=== PATIENT | female | born 1980 | race Caucasian/White ===

== ENCOUNTER 2024-07-01 12:14 | Outpatient (CLI) | payer OTHER, SELFPAY ==
--- NOTE | ~2024-07-01 | US_ITS ---
EXAMINATION: US FNA w image guidance DATE: 07/01/2024 13:46 INDICATION: Nontoxic single thyroid nodule TECHNIQUE: A time-out was performed to verify the patient's name, date of , and procedure to be performed . The procedure and its benefits and risks were discussed with the patient. Risks specifically discus sed included bleeding and infection. The patient understood the risks and agreed to proceed. The neck was prepped and draped in the usual sterile manner. 3 mL 1% lidocaine was used for local anesthesia . 6 passes were made with a 25G needle into the lesion. Appropriate needle location was documented with continuous sonographic guidance. A sterile bandage was applied. There were no immediate compli cations. FINDINGS: Grayscale ultrasound images demonstrate biopsy needles advanced into a 1.8 cm solid heterogeneously h ypoechoic nodule with lobular margins and with both punctate and coarse shadowing calcifications (TI- RADS 5, highly suspicious , FNA if >=1.0 cm, annual followup is >0.5 cm). IMPRESSION: 1. Successful ultrasound-guided fine needle aspiration of a 1.8 cm TI RADS 5 left thyroid nodule. Reviewed, dictated and finalized at location A. IMPRESSION: 1. Successful ultrasound-guided fine needle aspiration of a 1.8 cm TI RADS 5 l eft thyroid nodule.
--- OUTSIDE RECORDS SUMMARY | 2024-07-01 13:56 | XMS_ITS | Clinical Summary ---
Author Organization [facility] Address [address] [place] [address] Care Team Providers Care Finance Admin Name Role Phone Sunny Iyer Primary Care Provider Unavailab le Source Comments [facility],non-owned Affiliates and Associated Physician Practices is amultiple site organization consisting of ambulatory clinics and hospital sitesin [place], [place], [place] and [place]. This disclosure is being madepursuant to the Care Everywhere program and may not contain all information available regarding this patient. Last updated 17.[facility] [employer] Allergies No known active allergies Social History Tobacco Use Types Packs/Day Years Used Date Smoking Tobacco: Every Day Cigarettes Smokeless Tobacco: Never Sex and Gender Information Value Date Recorded Sex Assigned at Not on file Gender Identity Not on file Sexual Orientation Not on file Last Filed Vital Signs Vital Sign Reading Time Taken Comments Blood Pressure - - Pulse - - Temperature - - Respiratory Rate - - Oxygen Saturation - - Inhaled Oxygen Concentration - - Weight 72.6 kg (160 lb) 08/08/2017 12:59 PM CDT Height 167.6 cm (5' 6 ) 08/08/2017 12:59 PM CDT Body Mass Index 25.82 08/08/2017 12:59 PM CDT Plan of Treatment Health Maintenance Due Date Last Done Comments COLOGUARD (AGES 45-75) - COL ON CA SCREENING 1978 COLON MONITORING 1978 COLONOSCOPY - COLON CA SCREENING 1978 CT COLONOGRAPHY - COLON CA SCREENING 1978 Colorectal Cancer Screening 1978 FIT - COLON CA SCREENING 1978 FLEX SIG - COLON CA SCREENING 1978 LIPID TESTING 1978 MAMMOGRAM 1978 PAP SMEAR 1978 HIV SCREENING 1993 HEPATITIS C SCREENING 02/24/1996 DTAP/TDAP/TD VACCINES (1 - Tdap) 1997 HEPATITIS B VACCINE (1 of 3 - 19+ 3-dose series) 1997 COVID-19 VACCINE (1 - 2023-2 5 season) 2023 DEPRESSION SCREENING 03/27/2024 INFLUENZA VACCINE (Season Ended) 2024 ZOSTER VACCINE (1 of 2) 02/29/2028 HIB VACCINE Aged Out No longer eligi ble based on patient's age to complete this topic HPV VACCINE Aged Out No longer eligi ble based on patient's age to complete this topic MENINGOCOCCAL (Group B) VACC INE SHARED DECISION-MAKING Aged Out No longer eligibl e based on patient's age to complete this topic MENINGOCOCCAL GROUPS A/C/Y/W VACCINE Aged Out No longer eligible b ased on patient's age to complete this topic PNEUMOCOCCAL VACCINE Aged Out No long er eligible based on patient's age to complete this topic Care Teams Finance Admin Relationship Specialty Start Date End Date Sunny Iyer Update Information PCP - General 05/06/19
--- OUTSIDE RECORDS SUMMARY | 2024-07-01 13:56 | XMS_ITS | CONTINUITY OF CARE DOCUMENT ---
Author Name [email or web address] Address Unknown Organization [facility] Address [address] [place] [address] Phone [phone] Care Team Providers Care Power Shovel Engineer Name Role Phone Chidi Zamudio MD Unavailable DONI REYES MD Unavailable DONI REYES MD Unavailable [phone] INSURANCE PROVIDERS Payer name Policy type / Coverage type [place] (2) Medicaid [id number]
--- OUTSIDE RECORDS SUMMARY | 2024-07-01 13:57 | XMS_ITS | Clinical Summary ---
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 Gender Identity Not on file Sexual Orientation Not on file Plan of Treatment Health Maintenance Due Date Last Done Comments Hepatitis C Virus (HCV) Screening 1978 TdaP Immunization 1978 Hepatitis B Immunization (1 of 3 - 19+ 3-dose series) 1997 Pap Smear 1999 Cervical Cancer Screening (CCS) 02/29/2008 HPV/Cotest 02/29/2008 Discussion re Starting/Frequ ency of Mammograms 2018 Colonoscopy 2023 Colorectal Cancer Screening 2023 Influenza Immunization (#1) 2023 SARS-COV-2 Immunization ( season) 2023 Respiratory Syncytial Virus (RSV) Immunization (Adult) (1 - 1-dose 75+ series) 2053 Meningococcal Immunization (ACWY) Aged Out No longer eligible based on patient's age to complete this topic Pneumococcal Immunization Combined Aged Out No longer eligible based on patient's age to complete this topic Rotavirus Immunization Aged Out No lo nger eligible based on patient's age to complete this topic Insurance MEDICAID [employer] Care Teams Solar Sales Assessor Relationship Specialty Start Date End Date Derek Denise MD [address] [place] [address] [address] [place] [address] PCP - General Internal Medicine 05/11/16
--- OUTSIDE RECORDS SUMMARY | 2024-07-01 13:57 | XMS_ITS | Data Portability ---
Author Organization Jocelynn RÍOS Address [address] [place] [address] Assessment No assessment recorded. Plan of Treatment Reminders Order Date Submit Date Provider Last Modified By Organization Details Last Modified Time Details Appointments None recorded. Lab CBC 2017 018 [facility], [address] [place] [address], [address], [place], [address], 8 15:22:49 TSH, ultra-sens itive, serum 2017 018 [facility], [address] [place] [address], [address], [place], [address], 8 15:22:48 CMP, serum or plasma 2017 018 [facility], [address] [place] [address], [address], [place], [address], 8 15:22:49 lipid panel, serum 2017 018 [facility], [facility], [address], [place], [address], 8 15:22:49 gamma-glut amyl transferas e (ggt), serum 2016 017 [facility], [address] [place] [address], [address], [place], [address], 7 03:07:15 TSH, ultra-sens itive, serum 2016 017 [facility], [address], [address], [place], [address], 7 03:07:16 lipid panel, serum 2016 017 [facility], [address], [address], [place], [address], 7 03:07:18 vitamin D, 25-hydroxy , total, serum 2016 017 [facility], [address], [address], [place], [address], 7 03:07:19 CMP, serum or plasma 2016 017 [facility], [address], [address], [place], [address], 7 03:07:22 vitamin B12 + folate, serum or blood 2016 017 [facility], [address], [address], [place], [address], 7 03:07:12 CBC w/ auto diff 2016 017 [facility], [address], [address], [place], [address], 7 03:07:13 TSH, ultra-sens itive, serum 2015 016 [email or web address], [address], [address], [place], [address], 6 15:10:02 CBC 2015 016 [email or web address] [facility], [address] [facility], [address], [place], [address], 6 15:10:03 CMP, serum or plasma 2015 016 [email or web address] [facility], [address] [facility], [address], [place], [address], 6 15:10:03 Referral orthopedic referral 2017 018 [email or web address] Cesario Rizzo MD, [address] [facility], [place], [address], 8 09:21:51 ENT referral - chronic hoarseness , globus sensation, vocal strain and voice fatigue 2015 016 [email or web address] Not available 6 14:26:32 Procedures None recorded. Surgeries None recorded. Imaging XR, thoracic spine 2017 018 [facility], [address] [place], [address], 8 16:13:25 XR, thoracolum bar spine 2016 017 [facility] ([facility]) Scheduling, [address] [place], [address], 7 09:23:22 Medication Orders tizanidine 4 mg tablet 2017 018 [facility], [address] [place] [address], [address], 8 15:22:40 tizanidine 4 mg tablet 2016 017 [facility], [address] [place], [address], 7 18:51:53 meloxicam 7.5 mg tablet 2016 017 [facility], [address] [place] [address], [address], 8 15:20:16 ibuprofen 800 mg tablet 2015 016 [facility], [address] [place] [address], [address], 7 14:32:56 hydroxyzin e HCl 50 mg tablet 2015 016 [facility], [address] [place] [address], [address], 7 14:14:17 Selsun [employer] 3 % shampoo 2015 016 [facility], [address] [place] [address], [address], 7 14:33:27 triamcinol one acetonide 0.5 % topical ointment 2015 016 [facility], [address] [place] [address], [address], 7 14:42:12 Patient TargetsNo targets recorded. Patient Instructions Encounter Date Encounter Id Patient Instructions Last Modified By Organization Details Last Modified Time 01/06/2016 [id number] deciding about using medicines to quit smoking [email or web address] Not available 01/06/2016 14:52:21 Learning About Benefits of Quitting Smoking [email or web address] Not available 01/06/2016 14:52:21 patient will schedule follow up visit with new PCP if symptoms do not improve. [email or web address] Not available 01/06/2016 14:36:17 04/26/2016 [id number] substance use disorder: care instructions [email or web address] Not available 04/26/2016 14:53:53 alcohol detoxification and withdrawal: care instructions [email or web address] Not available 04/26/2016 14:53:53 deciding about using medicines to quit smoking [email or web address] Not available 04/26/2016 14:53:52 Quitting Tobacco : Care Instructions [email or web address] Not available 04/26/2016 14:53:52 healthy upper back: exercises [email or web address] Not available 04/26/2016 14:53:52 back stretches: exercises [email or web address] Not available 04/26/2016 14:53:53 stretching: exercises [email or web address] Not available 04/26/2016 14:53:53 05/03/2017 [id number] When You Want to Lose Weight: Care Instructions [email or web address] Not available 05/03/2017 15:22:34 healthy upper back: exercises [email or web address] Not available 05/03/2017 15:22:34 back stretches: exercises [email or web address] Not available 05/03/2017 15:22:34 stretching: exercises [email or web address] Not available 05/03/2017 15:22:34 Reason for Referral ENT Referral for Chronic jacqueline rseness chronic hoarseness, globus sensation, vocal strain and voice fatigue Referring Physician: Reji Petty, Family Medicine, Encounter Date: 11/18/2015 Orthopedic Referral for Thor acic back pain As requested by the pt Referring Physician: Derek Denise, Internal Medicine, Encounter Date: 05/03/2017 Results Created Date Observation Date Name Description Value Unit Range Abnormal Flag Note LastModifiedBy Organization Detail LastModifiedTime 05/11/19 17 05/11/2016 XR, lumba r spine No observ ation record ed. akizer Not Available 2016 16:37:17 05/11/19 17 05/11/2016 XR, thora colum bar spine No observ ation record ed. akizer Not Available 2016 16:39:32 Result Notes None recorded. Problems Name Problem SNOMED Code Status Onset Date Resolution Date Notes Provider Name and Address Organization Details Recorded Time Acute upper respirat ory infectio n 98229066 Completed 05/03/2017 Derek Denise MD Attn: Accounting, [address] [place], [address], [place] [facility] 8 15:01:01 Upper respirat ory infectio n 80259929 Completed 201505/03/2017 seen at ER 6 Derek Denise MD Attn: Accounting, [address] [place], [address], [place] [facility] 8 15:00:50 Cigarett e smoker 07469300 Active Reji [place]ss [place], [place] [facility] 6 14:36:15 Excessiv e growth of facial hair 852160875 [place] [facility] 6 09:25:33 Vocal fatigue 3904002 Active Laurain [place] [facility] 6 15:41:16 Gastroes ophageal reflux disease 193692367 [place] Re[place] [facility] 6 14:48:08 Disorder of skin 90464617 Completed 05/03/2017 Derek Denise MD Attn: Accounting, [address] [facility], [place], [address], [place] [facility] 8 15:00:57 Chronic hoarsene ss 17258035787 05 Active [place] [facility] 6 15:41:16 Psoriasi form eczema 143383962 Active [place] [facility] 6 15:41:16 Dermatop hytosis 26538213 Active [place]anda[place] [facility] 6 15:41:16 Anxiety 97433431 Active [place] [facility] 6 15:41:16 Pityrias is versicol or 04372054 Active [place] [facility] 6 16:15:31 Multiple joint pain 44897232 Active [place] [facility] 6 14:36:15 Thoracic back pain 356394955 Active 2016 Derek Denise MD Attn: Accounting, [address] [place], [address], [place] [facility] 7 14:48:04 Tobacco dependen ce syndrome 69284399 Active 2016 Derek Denise MD Attn: Accounting, [address] [place], [address], [facility] 7 14:48:42 Alcohol dependen ce 56986153 Active 2016 Derek Denise MD Attn: Accounting, [address] [facility], [place], [address], [facility] 7 14:49:24 Problem Notes None recorded. Procedures Surgical History Date Name Laterality Status Provider Name and Address Organization Details Recorded Time 04/27/2012 Date of Last Pap Smear completed Cindy Ott MA [facility] 05/20/2015 11:26:05 03/27/2003 LEEP completed Cindy Ott MA [facility] 05/20/2015 11:19:31 Imaging Results Imaging Date Name Status LastModified by Organization Details LastModified Time 05/11/2016 XR, lumbar spine completed Informat ion not available 05/17/2016 16:37:17 05/11/2016 XR, thoracolumbar spine completed Information not available 05/17/2016 16:39:32 Procedure Notes None recorded. Medical Equipment None Reported. Allergies No known drug allergies Medications Name Sig Start Date Stop Date Status Note LastModified by Organization Details LastModified Time ketoconaz ole 2 % shampoo APPLY TO THE AFFECTED AREA(S), LATHER, LEAVE IN PLACE FOR 5 MINUTES, AND THEN RINSE OFF WITH WATER BY TOPICAL ROUTE ONCE DAILY FOR 3 DAYS 04/26 completed Not Available Not Available Not Available ibuprofen 800 mg tablet Take 1 tablet every 8 hours by oral route with meals. 04/26 completed Not Available Not Available Not Available tizanidin e 4 mg tablet Take 1 tablet every day by oral route as needed. active Not Available Not Available No t Available levonorge strel-eth inyl estradiol 0.1 mg-20 mcg tablet active Not Available Not Available Not Available prednison e 20 mg tablet Take 3 tablets every day by oral route as needed for 5 days. 07/22 completed Not Available Not Available Not Available Zithromax 250 mg tablet TAKE 2 TABLETS (500 MG) BY ORAL ROUTE ONCE DAILY FOR 1 DAY THEN 1 TABLET (250 MG) BY ORAL ROUTE ONCE DAILY FOR 4 DAYS 07/22 completed Not Available Not Available Not Available triamcino lone acetonide 0.5 % topical ointment APPLY A THIN LAYER TO AFFECTED AREA(S) TOPICALL Y TWICE DAILY USE SPARINGL Y active stopped 7 Not Available Not Available Not Available hydroxyzi ne HCl 50 mg tablet Take 1 tablet every 6-8 hours by oral route as needed. 04/26 completed Not Available Not Available Not Available triamcino lone acetonide 0.1 % topical cream active Not Available Not Available Not Available meloxicam 7.5 mg tablet Take 1 tablet twice a day by oral route with meals. active Not Available Not Available No t Available Tessalon Perles 100 mg capsule Take 1 capsule 3 times a day by oral route. 07/22 completed Not Available Not Available Not Available ferrous sulfate 325 mg (65 mg iron) tablet active Not Available Not Available Not Available ranitidin e 150 mg tablet Take 1 tablet twice a day by oral route as directed . 04/26 completed Not Available Not Available Not Available nicotine 21 mg/24 hr daily transderm al patch 04/26 completed Not Available Not Available Not Available Emla 2.5 %-2.5 % topical cream 04/26 completed Not Available Not Available Not Available hydralazi ne 50 mg tablet Take 1 tablet every 6-8 hours by oral route as needed. 04/26 completed Not Available Not Available Not Available Cheratuss in AC 10 mg-100 mg/5 mL oral liquid Take 10 mL every 4-6 hours by oral route after meals. 07/22 completed Not Available Not Available Not Available Vitamin D2 1,250 mcg (50,000 unit) capsule active Not Available Not Available Not Available fluticaso ne propionat e 50 mcg/actua tion nasal spray,randolph pension 04/26 completed Not Available Not Available Not Available nicotine 21mg/24hr -14mg/24h r-7mg/24h r daily transderm patches,s equentl Apply 1 patch every day by transder mal route in the morning. 07/22 completed Not Available Not Available Not Available ProAir HFA 90 mcg/actua tion aerosol inhaler Inhale 2 puffs every 4 hours by inhalati on route. 07/22 completed Not Available Not Available Not Available Claudio [employer] 3 % shampoo Apply 1 applicat ion every day by topical route. 04/26 completed Not Available Not Available Not Available Take Action 1.5 mg tablet 05/03 completed Not Available Not Available Not Available Vitals Date Recorded Body height Body mass index (BMI) Body weight Heart rate Respiratory rate Body temperature Systolic blood pressure Diastolic blood pressure Provider Name and Address Organization Details Last Updated DateTime 8 165.1 cm 27.2 kg/m2 50890.7 1 g 60 /min 16 /min 98 [degF] 126 mm[Hg] 90 mm[Hg] RAYMUNDO [place] [facility] 8 14:54:18 Date Recorded Body height Body weight Body mass index (BMI) Body temperature Respiratory rate Heart rate Systolic blood pressure Diastolic blood pressure Provider Name and Address Organization Details Last Updated DateTime 6 167.64 cm 58280.5 34324 g 23 kg/m2 98.6 [degF] 18 /min 70 /min 120 mm[Hg] 80 mm[Hg] Cindy Ott MA [facility] 6 11:44:56 Date Recorded Body weight Body temperature Respiratory rate Heart rate Body height Body mass index (BMI) Systolic blood pressure Diastolic blood pressure Provider Name and Address Organization Details Last Updated DateTime 6 64991.0 32107 g 98.6 [degF] 18 /min 70 /min 167.64 cm 24.1 kg/m2 110 mm[Hg] 82 mm[Hg] Cindy Ott MA [facility] 6 14:07:27 Date Recorded Body height Body weight Body mass index (BMI) Heart rate Respiratory rate Systolic blood pressure Diastolic blood pressure Provider Name and Address Organization Details Last Updated DateTime 6 167.64 cm 75821.8 8 g 23.8 kg/m2 68 /min 16 /min 126 mm[Hg] 72 mm[Hg] Tanya Brown MA [facility] 6 14:52:16 Date Recorded Body height Body weight Body mass index (BMI) Heart rate Respiratory rate Body temperature Systolic blood pressure Diastolic blood pressure Provider Name and Address Organization Details Last Updated DateTime 7 167.64 cm 00394.9 4 g 23.2 kg/m2 68 /min 14 /min 97.2 [degF] 100 mm[Hg] 62 mm[Hg] Yudi Izaiah mckay [place] 7 14:12:37 Social History Question Answer Notes LastModified by Organizat ion Details LastModified Time Tobacco Smoking Status Current Every Day Smoker SUZANNE Roe[place] 05/20/2015 11:25:33 What Is Your Level Of Alcohol Consumption? Moderate Information not available 05/20/2015 What Is Your Level Of Caffeine Consumption? Moderate [email or web address] Information not available 05/20/2015 Live Alone Or With Others? With Others [email or web address] Information not available 05/20/2015 How Many Children Do You Have? 0 [email or web address] Information not available 05/20/2015 Seat Belts Used Routinely Yes [email or web address] Information not available 05/20/2015 Smoke Alarm In Home Yes [email or web address] Information not available 05/20/2015 At What Age Did You Start Smoking Tobacco? 13 Information not available 05/20/2015 How Much Tobacco Do You Smoke? 1 PPD Information not available 05/20/2015 How Many Years Have You Smoked Tobacco? 21 [email or web address] Information not available 05/20/2015 Sex: Unknown Functional Status Question Answer Note LastModified by Organization D etails LastModified Time Are you able to care for yourself? Yes [email or web address] Information n ot available 05/20/2015 Mental Status None recorded. Family History Relationship Description Onset Age of this Age Resolved Age Notes LastModified by Organization Details LastModified Time Mother Disorder of thyroid gland [email or web address] Not available 05/20 11:25:33 Father Diabetes mellitus [email or web address] Not available 05/20 11:25:33 Father Hypertensive disorder [email or web address] Not available 05/20 11:25:33 Medical History Condition Response Thyroid Problems Y Gynecological History Statement/Question Response Abnormal Pap Y Date of Last Pap Smear 04/27/2012 LMP Definite Obstetrics History GPAL:G 0 P 0 0 0 0 Past Encounters Encounter ID Performer Location Encounter Start Date Encounter Closed Date Diagnosis/Indication Diagnosis SNOMED-CT Code Diagnosis ICD10 Code Diagnosis Note [id number] Reji Urbinan ([facility]) [address] [place] [address] 05/20/2015 10:32:43 05/20/2015 12:36:00 Acute upper respiratory infection 95855735 J06.9 Recently seen at [facility], we will request chest xray report and other test results. Cigarette smoker 6258262 7 F17.210 [id number] [facility] [address] [place] [address] 07/23/2015 08:46:07 07/23/2015 09:39:25 Excessive growth of facial hair 222792225 L68.2 [id number] Reji Petty [facility] ([facility]am Med) [address] [place] [address] 11/06/2015 14:21:19 11/06/2015 14:49:35 Vocal fatigue 0492711 R49.8 Gastroesop hageal reflux disease 384160858 K21.9 [id number] Reji Petty [facility] ([facility] Med) [address] [place] [address] 11/18/2015 11:35:15 11/19/2015 16:32:45 Vocal fatigue 7340533 R49.8 Chronic hoarseness 17822 52575 105 R49.0 Psoriasiform eczema 2385 97390 L30.8 Dermatophytosis 95858583 B35.9 Tinea Versicolor . recommend Selsun applicatio n to skin for 5 min and rinse off during shower. Anxiety 71680986 F41.9 [id number] [facility] [address] [place] [address] 01/06/2016 13:49:10 01/06/2016 14:39:15 Multiple joint pain 76527792 M25.50 Cigarette smoker 4201430 7 F17.210 Encouraged again to quit. [id number] ERON Oconnor ([facility]am [facility]) [address] [place] [address] 03/11/2016 14:44:11 03/11/2016 15:44:06 Hypothyroidism 57082184 E03.9 Counseled on hypothyroi d, lab work and medication -will call with results-ad vised to keep appointmen t with DR. Licea in March [id number] MD Jimbo Taylor ([facility]) [address] [place] [address] 04/26/2016 13:54:20 04/26/2016 14:55:27 Thoracic back pain 887547865 M54.6 Do stretching exercise. X ray Tobacco de pendence syndrome 47392523 F17.290 Recommend to slow down and quit at the earliest- 1PPD Megaloblastic anemia 531 69625 D53.1 Check labs Alcohol dependence 91986 003 F10.20 Slow down and quit Health phyllis ntenance alteration 40845720 Z78.9 Baseline labs [id number] MD Jimbo Taylor ([facility]) [address] [place] [address] 05/03/2017 14:43:03 05/04/2017 10:02:28 Thoracic back pain 191298805 M54.6 Do stretching exercise. X rayTake tizanidine as neededRefe rred to Ortho as requested. . Overweight 142593581 E66 .3 Recommend to loose weight with diet control and exercise. Adult heal th examination 165364708 Z00.00 Baseline labs Health Concerns Section Related Observation LastModified by Organization Detai ls LastModified Time None Recorded Concern Status LastModified by Organization Details LastModified Time None Recorded Advance Directives Directive None Recorded Payers Encounter Date Sequence Insurance Name Policy Number Policy Canales Covered Member ID Canales Member ID Guarantor Name 11/18/2015 1 [facility] PRIOR TO 09/24/2020 (MEDICAID REPLACEMENT - HMO) Adore Mcneil [id number] Adore Mcneil 01/06/2016 1 [facility] PRIOR TO 09/24/2020 (MEDICAID REPLACEMENT - HMO) Adore Mcneil [id number] Adore Mcneil 03/11/2016 1 [facility] PRIOR TO 09/24/2020 (MEDICAID REPLACEMENT - HMO) Adore Mcneil [id number] Adore Mcneil 04/26/2016 1 [facility] PRIOR TO 09/24/2020 (MEDICAID REPLACEMENT - HMO) Adore Mcneil [id number] Adore Mcneil 05/03/2017 1 [facility] PRIOR TO 09/24/2020 (MEDICAID REPLACEMENT - HMO) Adoresuellen Mcneil [id number] Adore Mcneil Notes Date Note Type Note Provider Name and Address Organization Details Recorded Time 11/18/2015 text/html Complains of spo ts on arms and large spots on both elbows and knees most of my life that were diagnosed as possible psoriasis. She is requesting topical medication for the scale, itch and dry skin. The light spots on arms are evident since heavy tanning over the summer in the sun. No itch associated with these, limited to upper extremities only, scattered over arms as irregularly shaped 3-4 mm hypopigmented areas. No redness or obvious scale noted on these. Patient reports anxiety with long airplane flights and is requesting something for her anxiety while enroute to [place] in November. She is also asking for referral to ENT for chronic hoarseness with vocal strain and foreign body sensation in throat. NELSON Casanova 11/19/2015 11:01:57 01/06/2016 text/html Musculoskeletal PainReported bypatient.Location:bi lateral neck; bilateral elbow; bilateral hand Severity:same Duration:present for 1-6 months Timing:intermittent Associated Symptoms:no fever; no numbness of the legs/feet; no incontinence ADL (Activities of Daily Living)walking; sweeping; moppingNotes:patient has not tried any OTC medication. NELSON Casanova 01/06/2016 14:37:05 03/11/2016 text/html ThyroidReported bypatient.Context:no history of head or neck radiation during childhood; no history of thyroid disease; no history of hypothyroidism; no history of hyperthyroidism; no excess iron exposure;high thyroid levels(in past) Associated Symptoms:no cold intolerance; no heat intolerance; no weight loss; no weight gain; no double vision; no dry eyes; no hoarseness; no difficulty swallowing; no neck masses; no deepening of the voice; no fast heart rate; no increased blood pressure; no palpitations; no chest pain; no chest tightess or pressure; no constipation; no diarrhea; no vomiting; no decreased appetite; no loose stools; no irregular menstrual periods; no excessive sweating; no joint pain; no numbness; no tingling of the hands or feet; no tremor; no nervousness; no depression; no sleep difficulties; no skin changes; no hair changes;joint pain;dry skin;anxiety;fatigueN otes:notes she has had been diagnosed with hypothyroid but hasn't been on medications for a couple years, has concerns since her father has been recently diagnosed with liver cancer. ERON Oconnor Attn: Accounting,[address] [place], [address], [facility] 03/11/2016 15:25:44 04/26/2016 text/html Generic HPI TemplateReported bypatient.Notes:Here to establish with new PCP.Brought labs ordered by another provider following fatigue and probable low thyroid as she was on it 3 yrs ago per the pt.TSH was wnl , MCV is 100 Does smoke almost 1PPD.Does drink somewhat more and even more during weekends! 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 Denies tingling /numbness. Derek Denise MD Attn: Accounting,[address] [place], [address], [facility] 04/26/2016 14:51:49 05/03/2017 text/html Generic HPI TemplateReported bypatient.Notes:Here after 1 yr.c/o back pain , not taking any medication, does see Chiropractor, prefer to see Ortho MD vs wants papers signed to get CBT oil- uses natural things it seems. H/o hip surgery when she was smallDenies having tingling/numbness in extremities.Also says a mrk in buttock, she pulled tick in June, wondering there is head in there feels something in there'O/E other than mild pink, non tender area Derek Denise MD Attn: Accounting,[address] [place], [address], [facility] 05/04/2017 09:06:50 OBGyn Episode No OBEpisode recorded.
== END 2024-07-01 12:15 | disposition home or self-care (01) ==
PROVIDERS: PCP Family Medicine; Visit Provider Otolaryngology
DX: E04.1 Nontoxic single thyroid nodule (principal)
CPT/HCPCS: 10005; 88172; 88173; 88305